=== PATIENT | male | born 1990 | race Two or more races ===

== ENCOUNTER 2022-01-24 13:46 | Emergency (ER) | payer MEDICAID, OTHER ==
[~2022-01-24] VITALS: Ht 175.3 cm; Wt 86.6 kg
[2022-01-24] MEDS ORDERED: ACETAMINOPHEN 500 MG TAB PO ONE (16:45)
[2022-01-24 19:04] VITALS: BP 114/80
== END 2022-01-24 19:02 | disposition home or self-care (01) ==
LOC: ER 13:46
DX: U07.1 COVID-19 (principal); R51.9 Headache, unspecified; R94.31 Abnormal electrocardiogram [ECG] [EKG]
CPT/HCPCS: 71046; 93005